=== PATIENT | female | born 1945 | race Caucasian/White ===

== ENCOUNTER 2016-10-23 15:57 | Inpatient (IN) ==
[2016-10-23] MEDS ORDERED: ULTRAM PO PRN (22:00)
[2016-10-23 22:06] LABS: MANUAL DIFF NEEDED? NO
[2016-10-23 22:23] LABS: INR 1.05; PROTIME 11.1 Seconds (9.2-11.7); PTT 27.4 Seconds (22.0-36.0)
[2016-10-23 22:27] LABS: BASO% 0.6 % (0.0-0.8); EOS# 0.27 X1000 (0.0-0.7); EOS% 3.2 % (0.0-10.0); HEMATOCRIT 36.7 % (37.0-47.0); HEMOGLOBIN 12.3 g/dL (12.0-16.0); LYMPH# 1.84 X1000 (1.2-3.4); LYMPH% 21.9 % (20.5-51.1); MCHC 33.5 g/dL (33-37); MCV 95.6 FL (81-99); MONO# 0.85 X1000 (0.11-0.59); MONO% 10.1 % (1.7-9.3); MPV 10.6 FL (7.4-10.4); NEUT% 64.2 % (42.2-75.2); PLT 269 X1000 (130-400); RBC 3.84 XMIL (4.2-5.4)
[2016-10-23 22:32] LABS: AGAP 10; ALBUMIN 3.7 g/dL (3.5-5.0); ALKALINE PHOSPHATASE 68 U/L (32-104); BUN 4 mg/dL (8-22); CALCIUM 8.9 mg/dL (8.8-10.2); CHLORIDE 106 mmol/L (98-107); COSMO 280; GOT 17 U/L (10-30); GPT 9 U/L (10-36); POTASSIUM 4.1 mmol/L (3.5-5.1); SODIUM 142 mmol/L (136-145); TCO2 26 mmol/L (25-35); TOTAL BILIRUBIN 0.38 mg/dL (0.20-1.00); TOTAL PROTEIN 6.7 g/dL (6.3-8.3)
[2016-10-23] MEDS ORDERED: SODIUM CHLORIDE 0.9% INJ PRN (22:41)
[2016-10-23] MEDS ORDERED: ZOFRAN IV PRN (22:43)
[2016-10-23] MEDS ORDERED: NS 1,000 ML IV SCH (22:43)
[2016-10-23] MEDS: DESYREL PO SCH (23:51)
[2016-10-23] MEDS: XANAX PO PRN (23:51)
[2016-10-23] MEDS: NICODERM PATCH TD SCH (23:51)
[2016-10-24] MEDS ORDERED: TYLENOL PO PRN (05:07)
[2016-10-24] MEDS: ZOSYN 3.375 GM/NS 3.375 GM/50 ML IVPB IV SCH ×5 (06:04→20:45)
[2016-10-24] MEDS: ULTRAM PO PRN ×2 (06:04→21:21)
[2016-10-24] MEDS: PROTONIX PO SCH (06:05)
--- NOTE | 2016-10-24 06:29 | HISTORY AND PHYSICAL ---
TIME: 2199. PRIMARY CARE PROVIDER: Dr. Villagomez. CHIEF COMPLAINT: Abdominal pain, diarrhea, and rectal bleeding. HISTORY OF PRESENT ILLNESS: Ms. Olmos is a 71-year-old female who has a history of hypertension, anxiety disorder, gastroesophageal reflux disease, irritable bowel syndrome, fibromyalgia, and insomnia. She presented to the ER at [facility] on October 22 with complaints of abdominal pain, diarrhea, and rectal bleeding. She was evaluated there, was diagnosed with a lower GI bleed and colitis. She was subsequently transferred to [facility] for further evaluation. Upon the patient's request, she was transferred from [facility] here, to [facility] so that she could see Dr. Jeff who has previously taken care of before, as well as her primary care physician, Dr. Villagomez, is here as well. The patient reports that recently, over the past couple of months, she has been treated twice for pneumonia with 2 separate rounds of Levaquin. Most recently, on Tuesday, approximately 5 days ago, she was seen by Dr. Mead, one of the associates of her primary care physician, and was given Lasix for some fluid in her bilateral lower extremities. She was also given a nonsteroidal anti-inflammatory injection as well as a dose of steroids for some possible arthritis in her knee. At this time, they also did order an echocardiogram on her as well, though we do not know the status of this study result. The patient states that just after being seen at the doctor's office around 2 p.m. that afternoon, she began having profuse diarrhea, was having multiple bowel movements daily. She also had some bloody stools noted as well that she described as bright red blood, though just recently in the past day or two, have become slightly darker with a light maroonish color that appears to have some clots in it. The patient does report a fever sensation and some chills, though has not had an elevated temperature. She has had some nausea, though has previously had problems with this and does take a prescription for Phenergan as needed, though she denied any vomiting. She complains of a generalized "raw soreness" in her abdomen. She also does have some generalized tenderness as well. The patient states that she is a smoker and does have a chronic cough but it seems to be a little worse at this time and it has been productive. She has also had some increased dyspnea on exertion as well as some lightheadedness at times. At this time presently, she does have a headache but states she has not slept for a few nights and thinks it might be related to this, though she denied having frequent headaches. The patient previously was being treated with Flagyl for colitis. Looking back at her labs from [facility] as well as [facility], it does appear that her hemoglobin and hematocrit are stable. Chemistries as well as a CBC are unremarkable. She does not have any leukocytosis. They did do a stool C. difficile toxin at [facility] which was negative. A CT of the abdomen and pelvis performed at [facility] on the showed long segment transverse colitis, not felt to be secondary to diverticulitis though the radiologist did report to consider infectious and inflammatory etiologies. Ischemic colitis felt less likely, given the distribution. Also, a chest x-ray was performed on the at [facility] which showed no evidence of acute cardiopulmonary process. At this time, the patient will placed for inpatient admission and we will consult gastroenterology for further evaluation as well. REVIEW OF SYSTEMS: A 12 point review of systems was conducted with the patient. All were negative except for pertinent positives mentioned above in the HPI. PAST MEDICAL HISTORY: 1. Hypertension. 2. Gastroesophageal reflux disease. 3. Irritable bowel syndrome. 4. Fibromyalgia. 5. Anxiety disorder. 6. Insomnia. PAST SURGICAL HISTORY: 1. Status post rectocele and cystocele repair in the past with bladder sling. 2. Status post hysterectomy with bilateral oophorectomy. 3. Status post cholecystectomy. SOCIAL HISTORY: The patient reports that she smokes 1 pack per day and has done so since the age of 26. She denies any alcohol or illicit drug use. FAMILY HISTORY: The patient's father has a history of heart disease. There is a history of a stroke and breast cancer in her mother. ALLERGIES: Patient reports allergies to the pneumococcal vaccine. HOME MEDICATIONS: Aspirin 81 mg p.o. at bedtime, Xanax 0.5 mg p.o. at bedtime, atenolol 100 mg p.o. daily, Protonix 40 mg p.o. daily, Stiolto Respimat inhaler 1 puff inhaled daily, tramadol 50 mg p.o. at bedtime, trazodone 100 mg p.o. at bedtime. DIAGNOSTIC DATA/LABORATORY RESULTS: White blood cell count 8.4, hemoglobin 12.3 , hematocrit 36.7, platelet count is 269,000. PT 11.1, INR 1.05, PTT is 27.4. Sodium 142, potassium 4.1, chloride 106, bicarb 26, BUN 4, creatinine 0.5, glucose 94, calcium 8.9. Liver function tests within normal limits. CK 144, troponin less than 0.01. ProBNP was 415. EKG previously performed at either [facility] or [facility] showed normal sinus rhythm at a rate of 60 with a QTc of 408. We have ordered an EKG to be performed here today and are awaiting those results at this time. A chest x-ray performed [facility] on October 23 showed no evidence of acute cardiopulmonary process. This was per their radiologist, Dr. Brothers. A CT of the abdomen and pelvis performed on October 22 at [facility] showed long segment transverse colitis not felt to be secondary to diverticulitis. Consider infectious and inflammatory etiologies. Ischemic colitis is felt less likely given the distribution. There was also extensive diverticulosis as mentioned above. There was also noted a nonobstructing left intrarenal stone. This was per their radiologist, Dr. Bullard. Pending diagnostic studies at this time are blood cultures and stool studies to include a C. difficile toxin, stool culture, as well as Hemoccult stool. PHYSICAL EXAMINATION: Vital Signs: Temperature 98.2 degrees, heart rate 71, respirations 17, blood pressure 152/72, oxygen saturation is 100% on room air. General: Ms. Olmos is a pleasant, 71- year-old, female. She was resting comfortably in the inpatient bed. She was in no acute distress. She was awake, alert, and able to answer all questions appropriately. HEENT: Head is atraumatic, normocephalic. Pupils are equal, round, reactive to light, were 3 mm bilaterally and brisk. Oral mucosa is moist. Neck: Supple. Trachea midline. The patient did have JVD noted upon examination with hepatojugular reflex. Cardiovascular: Patient has normal S1, S2. No murmurs, gallops, rubs appreciated, with a regular rate and rhythm. Pulmonary: Patient has symmetrical chest expansion bilaterally. Lung sounds were clear to auscultation in bilateral full brothers. Abdomen: Soft. Nondistended. The patient does have a slight protuberant abdomen noted. She did complain of some generalized tenderness upon palpation. Bowel sounds were present in all 4 quadrants, were slightly hyperactive. Extremities: No cyanosis, clubbing, or edema noted. Pulse, motor, and sensory were intact in all extremities. Pedal pulses were 3+ bilaterally. Integumentary: The patient's skin is pink, warm, dry, and intact. No lesions or sores noted. Neurological: Patient is alert and oriented x3. Cranial nerves 2-12 are grossly intact. ASSESSMENT AND PLAN: 1. Colitis. On previous examination, there was a long segment transverse colitis noted on the patient's CT of the abdomen and pelvis. We will place her on Zosyn 3.375 g intravenous every 6 hours. Blood cultures have been ordered. We have placed a consult with Dr. Jeff of gastroenterology. We will await her evaluation and further recommendations. We also are awaiting the results of stool studies. 2. Lower gastrointestinal bleed. The patient, at this time, is still reporting some bright red to maroonish colored stools with clots noted at times, though she is hemodynamically stable. The patient is tolerating oral fluids. Her hemoglobin and hematocrit have been stable as well. We will continue to monitor this closely and await gastroenterology's evaluation and recommendations. 3. Hypertension. We will continue the patient's atenolol. 4. Gastroesophageal reflux disease. We will continue her Protonix 40 mg by mouth daily. 5. Anxiety. We will continue her Xanax. 6. Fibromyalgia. We will continue her Ultram. 7. Insomnia. We will continue the patient's trazodone. 8. Nicotine dependence. We will auto club travel counselor the patient on the importance of smoking cessation throughout her admission and upon discharge. At this time, we have placed her on a nicotine patch and we will continue to follow. The patient does not have a previous history of congestive heart failure but did recently report that she needed to be given Lasix for some bilateral edema in her legs. She does have some jugular venous distention noted, though she denies any chest pain at this time. Her cardiac enzymes are negative. Her proBNP was slightly elevated at 415. The patient's lung sounds are clear. At this time, given that the patient is hemodynamically stable and is tolerating oral fluids, we will hold on intravenous fluids at this time. She did receive an echocardiogram on [place], approximately 5 days ago, at her primary care physician's office, Dr. Villagomez. Since he will be taking back over her care in the morning, we will hold off on ordering another echocardiogram given that he will likely be able to obtain these results through his office. The patient will be placed on the medical floor, telemetry. She will have vital signs every 8 hours. We will do strict intakes and outputs. She will be on a clear liquid diet. Deep venous thrombosis prophylaxis will be provided with sequential compression devices. We will repeat a CBC and BMP in the morning. Further orders and recommendations pending hospital course, diagnostic studies, and physician evaluation. Dictated by JENNY Chan for Jono Nation MD cc: MD Ronnie Alves MD MTDD
[2016-10-24 07:08] LABS: MANUAL DIFF NEEDED? NO
[2016-10-24 07:15] LABS: BASO% 0.5 % (0.0-0.8); EOS# 0.47 X1000 (0.0-0.7); EOS% 6.3 % (0.0-10.0); HEMATOCRIT 36.2 % (37.0-47.0); LYMPH# 2.12 X1000 (1.2-3.4); LYMPH% 28.4 % (20.5-51.1); MCH 32.1 PG (27-31); MCHC 33.1 g/dL (33-37); MCV 96.8 FL (81-99); MONO# 0.78 X1000 (0.11-0.59); MONO% 10.5 % (1.7-9.3); MPV 10.2 FL (7.4-10.4); NEUT% 54.3 % (42.2-75.2); PLT 236 X1000 (130-400); RBC 3.74 XMIL (4.2-5.4)
[2016-10-24 07:50] LABS: AGAP 11; BUN 5 mg/dL (8-22); CALCIUM 8.6 mg/dL (8.8-10.2); CHLORIDE 104 mmol/L (98-107); COSMO 280; POTASSIUM 3.6 mmol/L (3.5-5.1); SODIUM 141 mmol/L (136-145); TCO2 26 mmol/L (25-35)
[2016-10-24 08:22] LABS: URINE SOURCE CLEAN CATCH
[2016-10-24 08:25] LABS: BILIRUBIN URINE NEGATIVE (NEGATIVE); BLOOD URINE NEGATIVE (NEGATIVE); CLARITY CLEAR (CLEAR); COLOR YELLOW; GLUCOSE URINE NEGATIVE (NEGATIVE); LEUKOCYTES URINE NEGATIVE (NEGATIVE); NITRITE URINE NEGATIVE (NEGATIVE); PROTEIN URINE NEGATIVE (NEGATIVE); SP GRAVITY URINE 1.015; UROBILINOGEN URINE 0.2 EU/dL (0.2-1.0)
[2016-10-24 08:54] LABS: URINE CULTURE NEEDED? NO; URINE EPITHELIAL CELLS <10 /HPF (<10); URINE RBC <10 /HPF (<10); URINE WBC <10 /HPF (<10)
[2016-10-24 08:55] LABS: URINE CAST NONE SEEN /LPF; URINE CRYSTAL NONE SEEN /HPF
[2016-10-24] MEDS ORDERED: ATENOLOL 100 MG PO SCH (09:00)
[2016-10-24] MEDS: TENORMIN PO SCH (09:28)
[2016-10-24] MEDS ORDERED: KLOR-CON PO ONE (10:16)
[2016-10-24] MEDS: PHENERGAN IV PRN (11:12)
--- NOTE | 2016-10-24 11:41 | PROGRESS NOTE ---
DATE: 10/24/2016 SUBJECTIVE: This is a 71-year-old female patient admitted with abdominal pain, nausea, diarrhea, blood in the stool. The patient went to the emergency room at [facility] and then [facility]. Patient had workup done and found to have colitis in the transverse colon, most likely it is inflammatory versus infective. They offered hospitalization but patient decided to come to [facility] as her rough rounder machine and licensed tax consultant are here. Patient was seen by nurse practitioner at PMD's office last week. The patient did receive a shot of an anti-inflammatory medicine and maybe some diuretics for leg swelling. The patient did better but then she had diarrhea and bleeding per rectum. She did have chills, feverish feeling. The patient does have chronic cough with scanty sputum production. No unusual expectoration or hemoptysis. No typical chest pain or palpitations. The patient does have chronic fatigue, chronic pain. Her admission history and physical noted. PAST MEDICAL HISTORY: Significant for hypertension, gastroesophageal reflux disease, irritable bowel syndrome, fibromyalgia, insomnia, tobacco dependency, anxiety. OBJECTIVE: Vital signs: Noted. Neck: Supple. No JVD. Lungs: Bibasilar crepitations. Heart: S1 and S2 heard. Abdomen: Soft, globular. Mild diffuse tenderness. No guarding or rigidity. Extremities: No cyanosis, clubbing. No acute DVT. CHIEF BUSINESS OFFICER: Alert, awake. Able to move all 4 limbs. CONSIDERATION: 1. Patient admitted with hematochezia. Found to have colitis in the transverse colon. Her hemoglobin and hematocrit are stable around 12 and 36.2, WBC count 7.46, platelet count 236,000. Electrolytes done this morning, potassium 3.6, sodium 141, blood sugar 119. Urinalysis is benign. 2. Hypertension. 3. History suggestive of lower gastrointestinal bleed. 4. Irritable bowel syndrome. 5. Fibromyalgia. PLAN: Labs and medication noted. Dr. Jeff is going to evaluate the patient today. Meanwhile, the patient is on IV fluids. We will continue her home medicine. She is on IV antibiotics. Close observation. cc: MD Ronnie Ivroy MD
[2016-10-24] MEDS: PATIENT'S OWN MED INH SCH (17:50)
--- NOTE | 2016-10-24 20:27 | Diag Imaging Result Doc PS360 ---
EXAM: ABDOMEN/PELVIS W/CONTRAST HISTORY: colitis, blood in stool,abd pain TECHNIQUE: Dose reduction protocol. CT abdomen and pelvis with intravenous and oral contrast. COMPARISON: None. FINDINGS: The gallbladder has been removed. No focal hepatic abnormality. The liver is mildly prominent. Normal spleen, pancreas, and adrenal glands. There is a 16 mm left renal cyst. No hydronephrosis. No aortic aneurysm. Moderate atherosclerosis. No bowel obstruction. Normal appendix. No abscess. The uterus has been removed. No pelvic mass. Urinary bladder is distended and appears normal. There are scattered distal colonic diverticula. IMPRESSION: 1.Cholecystectomy 2.Mildly prominent liver 3.Left renal cyst 4.Diverticulosis 5.Hysterectomy Electronically signed by Devonte Mendez 10/24/2016 8:24 PM
[2016-10-24] MEDS: DESYREL PO SCH (20:45)
[2016-10-24] MEDS: XANAX PO PRN (20:57)
[2016-10-24] MEDS: NICODERM PATCH TD SCH (22:30)
--- NOTE | 2016-10-24 23:31 | CONSULTATION ---
DATE OF CONSULTATION: 10/23/2016 REFERRING PHYSICIAN: Jono Nation MD INDICATION FOR CONSULTATION: 1. Abdominal pain. 2. Diarrhea. 3. Rectal bleeding. HISTORY OF PRESENT ILLNESS: Ms. Amarilis wilkinson is a 71-year-old white female who is followed in our clinic for gastroesophageal reflux disease and irritable bowel syndrome. She presented to [facility] on 10/22/2016 with abdominal pain, diarrhea and rectal bleeding. In the emergency room, she had a CT scan that was remarkable for long segment transverse colitis. Her stools were found to be guaiac positive and maroon in color according to her daughter. She also passed a few dark red clots according to the family. She was transported by ambulance to [facility]. They offered admission; however, she requested transfer to [place] to be followed by a Dr. Villagomez and me. Since she has been here, she has continued to have diarrhea which has been described as dark brown thick liquid stool with over 6 bowel movements in the last 12 hours. She notes increasing abdominal pain in the transverse colon and the right upper quadrant. She notes nausea, but no vomiting. She notes chills and low-grade fever. We are asked to participate in her care. It should be noted that the patient's symptoms began after she received a course of antibiotics for a urinary tract infection. According to the family, and according to the records received, her stool studies at [facility] and [facility] were negative for C. difficile colitis. REVIEW OF SYSTEMS: Remarkable for upper abdominal right upper quadrant pain. She reports mild nausea and subjective fever. PAST MEDICAL HISTORY: 1. Hypertension. 2. GERD. 3. Irritable bowel syndrome. 4. Fibromyalgia. 5. Anxiety. 6. Insomnia. PAST SURGICAL HISTORY: 1. Rectocele and cystocele repair with a bladder sling. 2. Total abdominal hysterectomy with bilateral oophorectomy. 3. Cholecystectomy. SOCIAL HISTORY: The patient has smoked 1 pack per day for 45 years, beginning at age 26 years of age. She has no plans to quit. She denies alcohol or illicit drug use. FAMILY HISTORY: Remarkable for coronary artery disease, stroke and breast cancer. MEDICATION ALLERGIES: Pneumococcal vaccine. HOME MEDICATIONS: 1. Aspirin. 2. Xanax. 3. Atenolol. 4. Protonix. 5. Tramadol. 6. Trazodone. 7. Stiolto Respimat inhaler. PHYSICAL EXAMINATION: General: She is in no acute distress. Vital signs: Her blood pressure is 127/60, pulse 67, respiration 18, temperature of 97.3 degrees. HEENT: Negative for jaundice. Her oropharyngeal mucosal membranes are moist. Pulmonary: Lungs are clear anteriorly. There are mild decreased breath sounds in the bases bilaterally. Cardiovascular: Reveals regular rate and rhythm with no murmurs, gallops, or rubs. Abdominal: Exam reveals slightly hypoactive bowel sounds. The abdomen is soft with moderate upper abdominal tenderness along the transverse colon, as well as in the right upper quadrant. There is no rebound or guarding. There is mild right lower quadrant tenderness. Extremities: Bilaterally are negative for cyanosis, clubbing, or edema. OBJECTIVE DATA: Reveals a hemoglobin of 12 with hematocrit of 36.2, and white count of 7.46. She has 236,000 platelets. Sodium is 141, potassium 3.6, chloride 104, CO2 26, BUN 5, creatinine 0.6 with a glucose of 119 and a calcium of 8.6. CT scan from [facility], shows long-segment transverse colitis, diverticulosis and a nonobstructive left intrarenal kidney stone. Stool studies are remarkable in that her fecal white blood cells are negative. Her stool occult blood is negative on our exam, and her C. difficile toxin is negative as well. IMPRESSION: 1. Nausea. 2. Diarrhea. 3. Possible colitis. 4. Blood in stool. RECOMMENDATION: 1. Because of her increasing abdominal pain and stool studies that are negative for blood, I recommend a repeat CT scan at our facility. 2. Depending on the results of the CT scan, I will plan to perform EGD and colonoscopy to further evaluate her pain. 3. In the interim, I would continue Zosyn for the presumed enterocolitis. Of note, according to the nurses, she has had more than 6 bowel movements since admission that have been thick mucoid large volume diarrhea stools consistent with an enterocolitis. 4. Continue Protonix 40 mg daily as she has known gastroesophageal reflux disease. 5. Additional recommendations to follow based on the results of her testing. cc: MD Ronnie Brown MD
[2016-10-25] MEDS: ZOSYN 3.375 GM/NS 3.375 GM/50 ML IVPB IV SCH ×2 (03:09→08:28)
[2016-10-25] MEDS: PROTONIX PO SCH (06:18)
[2016-10-25] MEDS: TENORMIN PO SCH (08:28)
[2016-10-25] MEDS: PATIENT'S OWN MED INH SCH (08:29)
[2016-10-25] MEDS ORDERED: MIRALAX PO ONE (16:50)
[2016-10-25] MEDS ORDERED: DULCOLAX PO ONE (16:50)
[2016-10-25] MEDS: PHENERGAN IV PRN (16:51)
[2016-10-25] MEDS: ULTRAM PO PRN ×2 (17:32→22:37)
[2016-10-25] MEDS: DESYREL PO SCH (21:14)
[2016-10-25] MEDS: XANAX PO PRN (21:17)
[2016-10-25] MEDS: NICODERM PATCH TD SCH (22:36)
--- NOTE | 2016-10-26 04:35 | PROGRESS NOTE ---
DATE: 10/25/2016 SUBJECTIVE: Level 3 documentation. A 71-year-old white female, who was seen in my office last week for annual exam. She has a history of IBS. She had an annual checkup, presented to [facility] with abdominal pain, bleeding per rectum. She was diagnosed with colitis and several bowel movements. Transferred to [facility] for further evaluation. REVIEW OF SYSTEMS: HEENT: No headache. No vision problem. No earache. No sore throat. Neck: No goiter. No lymphadenopathy. No bruit. Cardiopulmonary: No chest pain, shortness of breath, PND, orthopnea. Gastrointestinal: Abdominal pain, bleeding per rectum. No history of prior antibiotic use. Genitourinary: No history of hesitancy, frequency. No swelling of legs. No joint pain. Neurologic: No focal symptoms or weakness. PAST MEDICAL HISTORY: Reviewed. PAST SURGICAL HISTORY: Reviewed. MEDICINES: Reviewed. PHYSICAL EXAMINATION: Vital Signs: Afebrile. Vitals are stable. Pulse oximetry 100%. Intake and output positive 900. HEENT: Within normal limits. Neck: Supple. No lymphadenopathy. No goiter. Chest: Bilateral air entry. Heart: Sounds are regular. Abdomen: Belly is soft, diffusely tender. No signs of peritonitis. Neurologic: Nonfocal. No peripheral edema, cyanosis, clubbing. INVESTIGATIONS: CBC: White cell count 7.4, hematocrit 36, platelets 236,000. SMA-7: Sodium 140, potassium 3.6, chloride 104, BUN 5, creatinine 0.6, glucose 111, calcium 8.6. Urinalysis was clear. Stool cultures were negative. Blood cultures were negative. Stool occult blood was negative. C. difficile was negative. Repeat CT scan of the abdomen and pelvis: Cholecystectomy, mild prominent left renal cyst, diverticulosis, and hysterectomy. ASSESSMENT AND PLAN: 1. Abdominal pain with hematochezia, questionable colitis. Physical exam is stable. Discussed with Dr. Jeff doing the colonoscopy in the morning. Check the inflammatory bowel disease panel and repeat the blood test. 2. Reconcile home medications. 3. Chronic insomnia. On trazodone. 4. Gastrointestinal prophylaxis with Protonix 40 mg daily. 5. Hypertension. Atenolol 100 daily. 6. Chronic anxiety. On Xanax as needed. LEVEL OF DOCUMENTATION: 35 minutes. cc: Ronnie Villagomez MD
[2016-10-26] MEDS: PROTONIX PO SCH (06:31)
[2016-10-26 06:58] LABS: MANUAL DIFF NEEDED? NO
[2016-10-26 07:20] LABS: BASO% 0.5 % (0.0-0.8); EOS% 12.1 % (0.0-10.0); HEMATOCRIT 36.5 % (37.0-47.0); LYMPH# 1.82 X1000 (1.2-3.4); LYMPH% 31.4 % (20.5-51.1); MCH 31.8 PG (27-31); MCHC 32.9 g/dL (33-37); MCV 96.8 FL (81-99); MONO# 0.73 X1000 (0.11-0.59); MONO% 12.6 % (1.7-9.3); MPV 10.4 FL (7.4-10.4); NEUT% 43.4 % (42.2-75.2); PLT 234 X1000 (130-400); RBC 3.77 XMIL (4.2-5.4)
[2016-10-26 07:43] LABS: AGAP 10; BUN 5 mg/dL (8-22); CALCIUM 8.4 mg/dL (8.8-10.2); CHLORIDE 107 mmol/L (98-107); COSMO 281; POTASSIUM 3.7 mmol/L (3.5-5.1); SODIUM 143 mmol/L (136-145); TCO2 26 mmol/L (25-35)
[2016-10-26] MEDS: TENORMIN PO SCH (10:03)
[2016-10-26] MEDS: PATIENT'S OWN MED INH SCH (10:05)
--- NOTE | 2016-10-26 10:07 | PROGRESS NOTE ---
DATE: 10/25/2016 SUBJECTIVE: The patient continues to have diffuse abdominal pain, copious diarrhea, and nausea. She denies fevers or chills. PHYSICAL EXAMINATION: Vital Signs: On examination, her blood pressure is 121/82, pulse is 72, respirations 22, temperature of 98.4 degrees. Pulmonary Examination: Lungs are clear to auscultation with normal respiratory effort. Cardiovascular Examination: Reveals regular rate and rhythm with no murmurs, gallops, or rubs. Abdominal Examination: Reveals hyperactive bowel sounds. The abdomen is soft with moderate upper abdominal tenderness, greatest in the epigastrium to right upper quadrant. She does have pain that tracks around the colon gutter along the left side. There is no rebound or guarding. OBJECTIVE DATA: At [facility] revealed transverse colitis on CT scan. However, our repeated CT scan shows surgical changes consistent with a cholecystectomy, prominent liver, diverticulosis, left renal cyst, and surgical changes of a hysterectomy. There was no evidence of colitis on our CT scan. RECOMMENDATION: 1. The patient continues to have symptoms despite mixed findings on the 2 CT scans. To further clarify this, I recommend she undergo an EGD and colonoscopy, especially in light of her nausea and diarrhea. 2. Continue Protonix 40 mg p.o. daily. 3. Additional recommendations to follow based on her endoscopic evaluation. cc: MD Ronine Brown MD
[2016-10-26] MEDS ORDERED: DIPRIVAN 1% ONE (12:11)
[2016-10-26] MEDS ORDERED: FENTANYL ONE (12:11)
[2016-10-26] MEDS ORDERED: XYLOCAINE-MPF 2% ONE (12:11)
[2016-10-26] MEDS: AUGMENTIN PO SCH ×2 (15:10→22:16)
--- NOTE | 2016-10-26 23:06 | PROGRESS NOTE ---
DATE: 10/26/2016 SUBJECTIVE: Patient complains of lower abdominal pain, diarrhea. Also passing blood in the stool. REVIEW OF SYSTEMS: None reported. PHYSICAL EXAMINATION: Vitals are stable. I's and O's are even. Belly is soft, nontender. Good bowel sounds. No masses palpable. Diffusely tender. ASSESSMENT AND PLAN: 1. Abdominal pain 2. Hematochezia. Discuss with Dr. Stark and going for EGD and colonoscopy. Based on that further recommendations will be followed. LEVEL OF DOCUMENTATION: 15 minutes. cc: Ronnie Villagomez MD
[2016-10-27] MEDS: CARAFATE LIQUID PO SCH ×2 (03:29→08:50)
--- NOTE | 2016-10-27 07:30 | OPERATIVE NOTE ---
PROCEDURE DATE: 10/26/2016 REFERRING PHYSICIAN: Boston Childers MD PRIMARY CARE PROVIDER: Ronnie Villagomez MD. INDICATION FOR PROCEDURE: 1. Diarrhea. 2. Abdominal pain. 3. Colitis on CT scan. PROCEDURE PERFORMED: Colonoscopy with biopsy. CONSENT: Informed consent was obtained from the patient prior to the procedure. The risks, benefits, and alternatives were discussed. MEDICATIONS: The patient received monitored anesthesia care. PERFORMING PHYSICIAN: Mi Jeff MD ASSISTANTS: 1. ST Moises 2. Nhung Schaefer RN 3. Igor Sanders CRNA 4. Rob Mejia MD, (anesthesia). COMPLICATIONS: There were no complications. ESTIMATED BLOOD LOSS: Less than 1-2 mL. SPECIMENS REMOVED: Random colon biopsy. CECAL INTUBATION TIME: Five minutes. WITHDRAWAL TIME: Eight minutes. PREP QUALITY: Good. FINDINGS: After the EGD was performed, the patient was repositioned. The pediatric colonoscope was inserted to the terminal ileum. The terminal ileum, ileocecal valve, and appendiceal orifice appeared endoscopically normal. Upon withdrawal, there were scattered ulcers and diffuse erythema throughout the entire colon consistent with acute colitis. The ulcers were predominantly in the transverse colon, although there were scattered ulcers throughout the ascending, descending and sigmoid colon. Random biopsies were obtained. Throughout the entire colon, there was diverticulosis. There was a predominance of diverticula in the descending and sigmoid colon. There was no evidence of diverticulitis. Upon further withdrawal, there was no evidence of colon polyps or masses seen. In the upper rectum, there were grade 1-2 internal hemorrhoids. On retroflexed view, there were medium external hemorrhoids. After the exam was complete, the lumen was decompressed and the scope was removed without incident. IMPRESSION: 1. Acute colitis, appears to be resolving. 2. Extensive diverticulosis. 3. Grade 2 internal hemorrhoids. 4. Medium external hemorrhoids. RECOMMENDATION: 1. Await biopsy results. 2. I await the results of the IBD profile which is pending. 3. Begin Augmentin 875 mg p.o. b.i.d. for 10 days, then stop. 4. Repeat colonoscopy will be based on the biopsy results. 5. We will plan to advance her diet to a regular diet. 6. If she tolerates her diet, I recommend outpatient management. 7. We will have the patient return to clinic in 4-6 weeks to assess interval progress. cc: MD Ronnie Brown MD Allen J. Schmidt, MD
--- NOTE | 2016-10-27 07:31 | OPERATIVE NOTE ---
PROCEDURE DATE: 10/26/2016 REFERRING PHYSICIAN: Boston Childers MD. PRIMARY CARE PROVIDER: Jose Juan Villagomez MD. INDICATION FOR PROCEDURE: 1. Nausea. 2. Diarrhea. 3. Colitis on CT. 4. Diffuse abdominal pain. 5. Dysphagia. PROCEDURE PERFORMED: Esophagogastroduodenoscopy with biopsy. CONSENT: Informed consent was obtained from the patient prior to the procedure. The risks, benefits, and alternatives were discussed. MEDICATION: The patient received monitored anesthesia care. PERFORMING PHYSICIAN: Mi Jeff MD. ASSISTANTS: 1. ST Moises. 2. Nhung Schaefer RN. 3. Igor Sanders CRNA. 4. Rob Mejia MD (anesthesia). COMPLICATIONS: There were no complications. ESTIMATED BLOOD LOSS: Less than 1 mL. SPECIMENS REMOVED: 1. Duodenal biopsy. 2. Gastric biopsy. FINDINGS: After sedation was achieved, the upper endoscope was inserted to the 2nd portion of the duodenum. The hypopharynx and tubular esophagus appeared normal. There was a nonobstructive Schatzki's ring in the distal esophagus. The GE junction and Schatzki's ring were measured at 38 cm from the incisors. The hypopharynx appeared normal. In the tubular esophagus, there was visible reflux to the mid esophagus. The mucosa appeared grossly normal. There was no evidence of Falcon's esophagus or esophageal varices. There was a Schatzki's ring at the GE junction. The GE junction was measured at 38 cm from the incisors. There was a hiatal hernia that spanned from 38-42 cm. There was gastritis in the hernia sac but no ulcerations. In the gastric body and antrum, there were multiple superficial erosions. In the antrum, there were 3 superficial ulcers. On retroflexed view, the hiatal hernia was again visualized, as was the gastritis. There were no masses or polyps seen. On forward view, the pylorus was patent. There was moderate to severe duodenitis in the 1st and 2nd portions of the duodenum. Biopsies were taken. The lumen was decompressed. The scope was retracted into the gastric lumen where gastric biopsies were also obtained. After the exam was complete, the lumen was decompressed and the scope was removed without incident. IMPRESSION: 1. Active reflux to the mid esophagus. 2. Schatzki's ring. 3. Hiatal hernia. 4. Severe erosive gastritis. 5. Three superficial antral ulcers. 6. Erosive duodenitis. RECOMMENDATION: 1. Await biopsy results. 2. Continue Protonix 40 mg daily. 3. Consider Carafate 1 g 4 times a day. 4. After treatment with Protonix and Carafate, I will repeat the EGD and perform a dilation in approximately 12 weeks. 5. We will proceed with a colonoscopy as previously scheduled. 6. We will have the patient return to clinic in 4 weeks for interval reassessment. cc: MD Ronnie Brown MD P. J. Reddy, MD Allen J. Schmidt, MD
[2016-10-27 07:55] VITALS: BP 144/71
[2016-10-27] MEDS: AUGMENTIN PO SCH (08:50)
--- NOTE | 2016-10-28 18:14 | DISCHARGE SUMMARY ---
ADMISSION DATE: 10/23/2016 DISCHARGE DATE: 10/27/2016 DISCHARGING DIAGNOSIS: Abdominal pain, resolving, nonspecific colitis. SECONDARY DIAGNOSES: 1. Hiatal hernia with superficial gastritis. 2. Diverticulosis. 3. Internal hemorrhoids. 4. Irritable bowel syndrome. 5. Chronic anxiety. 6. Fibromyalgia. 7. Vitamin B12 deficiency. 8. Nicotine abuse. CONSULTS: Mi Jeff MD. PROCEDURES: 1. EGD and colonoscopy. Findings: Hiatal hernia with reflux esophagitis and severe gastritis and superficial antral ulcers. 2. Colonoscopy: Resolving colitis, extensive diverticulosis, and hemorrhoids. BRIEF HISTORY: Please see the H P that was done by the hospitalist. In brief, she is a 67-year- old female who was seen in [facility] for abdominal pain , diarrhea, and hematochezia. Symptoms are out of proportion to the objective findings. Patient was transferred with a diagnosis of colitis. No prior use of antibiotics. HOSPITAL COURSE: She was given IV fluids and Probiotics and IV antibiotics. Follow up stool cultures were negative. Hemoccult negative. Repeat CT did not show any significant colitis as per Dr. Mendez. GI consult was obtained. EGD and colonoscopy with above findings. Dr. Jeff recommended continue PPI and Carafate and Augmentin and follow up in the office of the biopsies. Patient is tolerating the diet very well. LABS: CBC: White cell count 5.8, hematocrit 36, platelets 234,000. SMA 7: Sodium 143, potassium 3.7, chloride 107, BUN 5, creatinine 0.5, glucose 83. CRP slightly elevated. ProBNP was normal. Cardiac enzymes were normal. Urinalysis is clear. Stool: WBC is negative. Stool cultures were negative. Blood cultures were negative. C. diff is negative. Occult blood is negative. DISCHARGE CONDITION: At the time of discharge patient is stable. DISCHARGE MEDICATIONS: Trazodone 100 at bedtime, atenolol 100 daily, hold aspirin, Xanax 0.5 daily, tramadol 50 at bedtime, Protonix 40 daily, Stiolto Respimat 1 inhalation daily, Carafate liquid 1 gram q.6 as needed, Augmentin 875 p.o. b.i.d. for 10 days, Culturelle 1 tablet daily. FOLLOW-UP: Follow up in my office in 10 days, as well as Dr. Jeff's. cc: MD Mi Harman MD MTDD
== END 2016-10-27 09:45 | disposition home or self-care (01) ==
LOC: DIRADM 15:57 → SUPCPDRO 15:57 → SUATTDRO 15:57 → 3N 19:20
PROVIDERS: ADMIT Internal Medicine; ATTEND Internal Medicine